=== PATIENT | male | born 1940 | race Caucasian/White ===

== ENCOUNTER 2017-09-15 11:28 | Inpatient (IN) | payer OTHER ==
[~2017-09-15] VITALS: Ht 172.7 cm; Wt 69.2 kg
[~2017-09-15 11:28] MED LIST: AMLODIPINE BESY10 MG PO; APRESOLINE100 MG PO; APRESOLINE50 MG PO; ASPERDRINK81 MG PO; ASPIR-LOW81 MG PO; ASPIRIN E.C.81 M1 PO; ATENOLOL25 M1 PO; ATIVAN1 MG PO; ATORVASTATIN CA40 MG PO; Ambien PO; Ativan PO; BACTRIM,SEPT1 TABLET PO; BISOPROLOL FUMAR5 MG PO; CALCITRIOL0.25 MCG PO; CATAPRES0.2 MG PO; CEFTIN500 MG PO; CILOSTAZOL100 MG PO; COLACE100 MG PO; DAILY MULTIPLE1 EACH PO; DOCUSATE SODIU100 MG PO; ESCITALOPRAM OX10 MG PO; ESCITALOPRAM OX20 MG PO; FAMOTIDINE20 MG PO; FEROSUL325 MG PO; FUROSEMIDE40 MG PO; HYDRALAZINE HC100 MG PO; HYDROCHLOROTHIA25 MG PO; HYDROCODON-ACE1 EAC7 PO; Habitrol,Nicoderm CQ TD; K-DUR20 MEQ PO; KLOR-CON M2020 MEQ PO; KLOR-CON20 MEQ PO; LASIX40 MG PO; LEVAQUIN500 MG PO; LEXAPRO10 MG PO; LIPITOR20 MG PO; LIPITOR40 MG PO; LISINOPRIL20 MG PO; LOPRESSOR50 MG PO; LORAZEPAM1 MG PO; LOSARTAN POTASS25 MG PO; NIFEDIPINE ER60 MG PO; NORVASC10 MG PO; PLETAL50 MG PO; PROVENTIL HFA6.7 GM IH; Pletal PO; TENORMIN25 MG PO; THERAGRAN1 TABLET PO; TOPROL XL100 MG PO; TRAMADOL HCL50 MG PO; Tylenol Regular Stre PO; Vicodin,Norco 5/325 PO; Vitamin D PO
[2017-09-15 13:03] LABS: HEMATOCRIT 35.2 % (38.0-50.0); MCH 28.7 PG (29.0-34.0); MCHC 31.8 G/DL (30.0-36.0); MCV 90.3 FL (86-99); MEAN PLAT.VOLUME 10.3 uM^3 (9.0-12.4); PLATELET COUNT 248 K/uL (156-360); RBC DIS.WIDTH-CV 14.3 % (11.8-14.6); RBC DIS.WIDTH-SD 46.7 % (39-53); WHITE BLOOD COUNT 7.2 K/uL (4.1-10.2)
[2017-09-15 13:13] LABS: CHLORIDE 111 mEq/L (99-109); POTASSIUM 4.8 mEq/L (3.7-5.4); SODIUM 136 mEq/L (136-147)
[2017-09-15 13:15] LABS: GLUCOSE 104 mg/dL (70-99)
[2017-09-15 13:16] LABS: ANION GAP 8 MEQ/L (2-14)
[2017-09-15 13:19] LABS: GFR ESTIMATE (CALCULATED) 20 mL/min/; UREA NITROGEN (BUN) 42 mg/dL (9-23)
[2017-09-15 13:24] LABS: TROP-I INTERPRETATION POSITIVE; TROPONIN-I 1.78 ng/mL (0.0-0.30)
[2017-09-15 14:55] LABS: PTT 39.6 SEC (25-37)
[2017-09-15] MEDS ORDERED: LOSARTAN POTASS25 MG PO (15:04)
[2017-09-15] MEDS ORDERED: HYDRALAZINE HCL50 MG PO (15:07)
[2017-09-15] MEDS ORDERED: CATAPRES0.2 MG PO (15:07)
[2017-09-15] MEDS ORDERED: NIFEDIPINE ER60 MG PO (15:08)
[2017-09-15 15:15] LABS: PROTHROMBIN TIME 11.5 SEC (10.2-12.9)
[2017-09-15 16:51] VITALS: BP 147/65
[2017-09-15 18:31] LABS: TROP-I INTERPRETATION POSITIVE; TROPONIN-I 1.62 ng/mL (0.0-0.30)
[2017-09-15 20:03] VITALS: BP 132/63
[2017-09-15 21:36] LABS: INTER. NORMALIZED RATIO 1.1; PROTHROMBIN TIME 12.2 SEC (10.2-12.9)
[2017-09-15 21:54] LABS: PTT 170.7 SEC (25-37)
[2017-09-15 23:26] VITALS: BP 132/68
[2017-09-16] VITALS (7 sets, daily range): BP systolic 127–188; BP diastolic 58–92
[2017-09-16 01:23] LABS: TROP-I INTERPRETATION POSITIVE
[2017-09-16 01:24] LABS: TROPONIN-I 1.52 ng/mL (0.0-0.30)
[2017-09-16 04:49] LABS: BASOPHIL COUNT 0.1 K/uL (0-0.1); EOSINOPHIL (%) 3.6 % (0-5); EOSINOPHIL COUNT 0.3 K/uL (0-0.3); HEMATOCRIT 31.9 % (38.0-50.0); IMMATURE GRANULOCYTE (%) 0.3 % (0.0-0.7); INSTRUMENT ABS NEUTROPHIL CT 4.6 K/uL; LYMPHOCYTE COUNT 1.8 K/uL (1.0-2.8); MCHC 31.3 G/DL (30.0-36.0); MCV 89.4 FL (86-99); MEAN PLAT.VOLUME 10.8 uM^3 (9.0-12.4); MONOCYTE COUNT 0.7 K/uL (0-0.8); NEUTROPHIL (%) 61.9 % (45-76); NEUTROPHIL COUNT 4.6 K/uL (1.8-6.4); PLATELET COUNT 231 K/uL (156-360); RBC DIS.WIDTH-CV 14.2 % (11.8-14.6); RBC DIS.WIDTH-SD 46.3 % (39-53); RED BLOOD COUNT 3.57 M/uL (4.00-5.50); WHITE BLOOD COUNT 7.5 K/uL (4.1-10.2)
[2017-09-16 05:04] LABS: CHLORIDE 116 mEq/L (99-109); POTASSIUM 5.5 mEq/L (3.7-5.4); SODIUM 137 mEq/L (136-147)
[2017-09-16 05:06] LABS: GLUCOSE 93 mg/dL (70-99)
[2017-09-16 05:07] LABS: ANION GAP 4 MEQ/L (2-14)
[2017-09-16 05:10] LABS: GFR ESTIMATE (CALCULATED) 25 mL/min/; TROP-I INTERPRETATION POSITIVE; TROPONIN-I 1.55 ng/mL (0.0-0.30); UREA NITROGEN (BUN) 44 mg/dL (9-23)
[2017-09-17 04:50] VITALS: BP 164/56
[2017-09-17 05:39] LABS: BASOPHIL COUNT 0.1 K/uL (0-0.1); EOSINOPHIL (%) 4.3 % (0-5); EOSINOPHIL COUNT 0.3 K/uL (0-0.3); IMMATURE GRANULOCYTE (%) 0.4 % (0.0-0.7); INSTRUMENT ABS NEUTROPHIL CT 4.1 K/uL; LYMPHOCYTE COUNT 1.9 K/uL (1.0-2.8); MCH 28.5 PG (29.0-34.0); MCHC 31.6 G/DL (30.0-36.0); MCV 90.1 FL (86-99); MEAN PLAT.VOLUME 10.7 uM^3 (9.0-12.4); MONOCYTE (%) 10.1 % (3-12); MONOCYTE COUNT 0.7 K/uL (0-0.8); NEUTROPHIL COUNT 4.1 K/uL (1.8-6.4); PLATELET COUNT 222 K/uL (156-360); RBC DIS.WIDTH-SD 46.5 % (39-53); RED BLOOD COUNT 3.55 M/uL (4.00-5.50); WHITE BLOOD COUNT 7.2 K/uL (4.1-10.2)
[2017-09-17 07:37] VITALS: BP 143/68
[2017-09-17 07:56] LABS: ANION GAP 9 MEQ/L (2-14); CHLORIDE 117 MEQ/L (99-109); GFR ESTIMATE (CALCULATED) 28 mL/min/; GLUCOSE 82 mg/dL (70-99); SAMPLE HEMOLYSIS CHECK 0; SAMPLE ICTERIC CHECK 0; SAMPLE LIPEMIA CHECK 0; SODIUM 140 MEQ/L (136-147); UREA NITROGEN (BUN) 43 mg/dL (9-23); URIC ACID 8.3 mg/dL (3.1-9.2)
[2017-09-17 11:38] VITALS: BP 150/40
[2017-09-17 12:03] VITALS: BP 160/52
[2017-09-17 15:30] VITALS: BP 152/60
[2017-09-17 18:39] VITALS: BP 160/72
[2017-09-18 00:20] VITALS: BP 153/62
[2017-09-18 05:25] VITALS: BP 172/62
[2017-09-18 05:47] LABS: HEMATOCRIT 32.7 % (38.0-50.0); MCH 29.5 PG (29.0-34.0); MCHC 32.7 G/DL (30.0-36.0); MCV 90.1 FL (86-99); MEAN PLAT.VOLUME 11.3 uM^3 (9.0-12.4); PLATELET COUNT 223 K/uL (156-360); RBC DIS.WIDTH-CV 13.8 % (11.8-14.6); RBC DIS.WIDTH-SD 45.5 % (39-53); RED BLOOD COUNT 3.63 M/uL (4.00-5.50); WHITE BLOOD COUNT 7.8 K/uL (4.1-10.2)
[2017-09-18 07:02] LABS: ANION GAP 9 MEQ/L (2-14); CHLORIDE 110 MEQ/L (99-109); GFR ESTIMATE (CALCULATED) 26 mL/min/; GLUCOSE 90 mg/dL (70-99); POTASSIUM 5.5 MEQ/L (3.7-5.4); SAMPLE HEMOLYSIS CHECK 0; SAMPLE ICTERIC CHECK 0; SAMPLE LIPEMIA CHECK 0; SODIUM 138 MEQ/L (136-147); UREA NITROGEN (BUN) 50 mg/dL (9-23)
[2017-09-18 08:23] VITALS: BP 184/78
[2017-09-18 11:32] VITALS: BP 165/71
[2017-09-18 16:00] VITALS: BP 170/70
[2017-09-18 20:39] VITALS: BP 152/58
[2017-09-19 01:06] VITALS: BP 99/62
[2017-09-19 05:37] VITALS: BP 133/74
[2017-09-19 05:51] LABS: ANION GAP 11 MEQ/L (2-14); CHLORIDE 108 MEQ/L (99-109); CHLORIDE 109 MEQ/L (99-109); GFR ESTIMATE (CALCULATED) 25 mL/min/; GLUCOSE 89 mg/dL (70-99); POTASSIUM 4.9 MEQ/L (3.7-5.4); SAMPLE HEMOLYSIS CHECK 0; SAMPLE ICTERIC CHECK 0; SAMPLE LIPEMIA CHECK 0; SODIUM 136 MEQ/L (136-147); UREA NITROGEN (BUN) 52 mg/dL (9-23); UREA NITROGEN (BUN) 53 mg/dL (9-23)
[2017-09-19 08:55] VITALS: BP 175/74
[2017-09-19 12:16] VITALS: BP 167/75
[2017-09-19] MEDS ORDERED: AMLODIPINE BESY10 MG PO (14:21)
[2017-09-19] MEDS ORDERED: NICOTINE PATCH1 EAC2 TD (14:21)
== END 2017-09-19 15:49 | disposition home or self-care (01) | DRG 281 ==
LOC: EME 11:28 → 4EAST 14:30 → EDOF 14:30 → ENRESERV 14:47 → 4EAST 16:21
PROVIDERS: Emergency Medicine; Family Medicine; Internal Medicine Nephrology
DX: I21.A1 Myocardial infarction type 2 (principal); R00.1 Bradycardia, unspecified; T46.5X5A Adverse effect of other antihypertensive drugs, initial encounter; I95.9 Hypotension, unspecified; E87.2 Acidosis; E83.51 Hypocalcemia; E87.5 Hyperkalemia; I12.9 Hypertensive chronic kidney disease with stage 1 through stage 4 chronic kidney disease, or unspecified chronic kidney disease; N18.4 Chronic kidney disease, stage 4 (severe); E11.22 Type 2 diabetes mellitus with diabetic chronic kidney disease; E11.21 Type 2 diabetes mellitus with diabetic nephropathy; J44.9 Chronic obstructive pulmonary disease, unspecified; N25.81 Secondary hyperparathyroidism of renal origin; D63.1 Anemia in chronic kidney disease; R79.89 Other specified abnormal findings of blood chemistry; E55.9 Vitamin D deficiency, unspecified; I67.9 Cerebrovascular disease, unspecified; I51.7 Cardiomegaly; I08.0 Rheumatic disorders of both mitral and aortic valves; I25.10 Atherosclerotic heart disease of native coronary artery without angina pectoris; I73.9 Peripheral vascular disease, unspecified; E78.5 Hyperlipidemia, unspecified; I69.398 Other sequelae of cerebral infarction; H54.61 Unqualified visual loss, right eye, normal vision left eye; F32.9 Major depressive disorder, single episode, unspecified; F41.9 Anxiety disorder, unspecified; F17.210 Nicotine dependence, cigarettes, uncomplicated; I25.2 Old myocardial infarction; Z95.1 Presence of aortocoronary bypass graft; Z95.5 Presence of coronary angioplasty implant and graft; Z87.442 Personal history of urinary calculi; Z79.82 Long term (current) use of aspirin
CPT/HCPCS: 70450; 71020; 80048; 80048 91; 80069; 82040; 83630; 84484; 84550; 85025; 85027; 85610; 85730; 86850; 86900; 86901; 87493; 87506; 93005; 93306; 99281; 99285; J0461; J7030

== ENCOUNTER → 2017-10-04 | Outpatient (CLI) | payer MEDICARE, OTHER ==
[~2017-10-04] MED LIST changes: +HYDRALAZINE HCL50 MG PO; +NICOTINE PATCH1 EAC2 TD
== END | disposition home or self-care (01) ==
LOC: CDC 08:40
DX: Z01.810 Encounter for preprocedural cardiovascular examination (principal); I45.10 Unspecified right bundle-branch block; I44.4 Left anterior fascicular block; R94.31 Abnormal electrocardiogram [ECG] [EKG]
CPT/HCPCS: 93000

== ENCOUNTER 2017-10-08 21:49 | Inpatient (IN) | payer OTHER ==
[~2017-10-08] VITALS: Ht 172.7 cm; Wt 72.1 kg
[2017-10-09 10:38] VITALS: BP 186/64
[2017-10-09 13:38] LABS: POINT-OF-CARE METER ID UU14174212
[2017-10-09 15:35] LABS: POINT-OF-CARE METER ID UU13113675; POINT-OF-CARE USER ID 515036437
[2017-10-09 20:00] VITALS: BP 203/66
[2017-10-09 20:34] LABS: METH RESISTANT S AUREUS PCR NEGATIVE (NEGATIVE)
[2017-10-09 20:35] LABS: PROBE CHECK PASS; SPECIMEN PROCESSING CONTROL PASS
[2017-10-10] VITALS (24 sets, daily range): BP systolic 74–204; BP diastolic 43–99
[2017-10-11] VITALS (15 sets, daily range): BP systolic 105–159; BP diastolic 39–77
[2017-10-11] MEDS ORDERED: HYDROCODON-ACE1 EAC7 PO (09:58)
[2017-10-11] MEDS ORDERED: CLONIDINE HCL0.2 MG PO (10:03)
[2017-10-11] MEDS ORDERED: IMDUR60 MG PO (10:03)
[2017-10-11 11:55] LABS: POINT-OF-CARE METER ID UU14174217
== END 2017-10-11 13:35 | disposition home or self-care (01) | DRG 38 ==
LOC: ENRESERV 21:49 → 2SOUTH 10-09 10:04 → ENRESERV 10-09 13:55 → 2SOUTH 10-09 16:07 → ENRESERV 10-09 16:10 → 2SOUTH 10-09 16:21 → ENRESERV 10-09 16:22 → 4WEST 10-09 19:08
PROVIDERS: Surgery
PROC: 03CN0ZZ Extirpation of Matter from Left External Carotid Artery, Open Approach (ICD-10-PCS; principal; 2017-10-09)
PROC: 03CL0ZZ Extirpation of Matter from Left Internal Carotid Artery, Open Approach (ICD-10-PCS; principal; 2017-10-09)
DX: I65.21 Occlusion and stenosis of right carotid artery (principal); F17.200 Nicotine dependence, unspecified, uncomplicated; I25.10 Atherosclerotic heart disease of native coronary artery without angina pectoris; E11.51 Type 2 diabetes mellitus with diabetic peripheral angiopathy without gangrene; E87.5 Hyperkalemia; R00.1 Bradycardia, unspecified; E78.5 Hyperlipidemia, unspecified; I16.0 Hypertensive urgency; K59.00 Constipation, unspecified; I10 Essential (primary) hypertension; N17.9 Acute kidney failure, unspecified; J44.9 Chronic obstructive pulmonary disease, unspecified; Z88.0 Allergy status to penicillin; Z87.11 Personal history of peptic ulcer disease; Z95.1 Presence of aortocoronary bypass graft; Z79.82 Long term (current) use of aspirin; I70.213 Atherosclerosis of native arteries of extremities with intermittent claudication, bilateral legs; M19.90 Unspecified osteoarthritis, unspecified site
CPT/HCPCS: 82948; 86850; 86900; 86901; 87641; 93005; J0131; J0360; J1644; J1650; J2405; J2720; J2795; J3010; J7120

== ENCOUNTER 2018-02-11 20:49 | Inpatient (IN) | payer OTHER ==
[~2018-02-11] VITALS: Ht 182.9 cm; Wt 71.6 kg
[~2018-02-11 20:49] MED LIST changes: +CLONIDINE HCL0.2 MG PO; +IMDUR60 MG PO
[2018-02-12 08:27] VITALS: BP 160/72
[2018-02-12] MEDS ORDERED: HYDROCODON-ACE1 EAC7 PO (13:48)
[2018-02-12 19:00] VITALS: BP 166/54
[2018-02-12 19:31] VITALS: BP 154/72; BP 154/78
[2018-02-12 23:57] VITALS: BP 116/71
[2018-02-13 04:48] VITALS: BP 132/74
[2018-02-13 08:13] VITALS: BP 149/67
== END 2018-02-13 11:20 | disposition home or self-care (01) | DRG 39 ==
LOC: ENRESERV 20:49 → 2SOUTH 02-12 08:09 → ENRESERV 02-12 16:21 → 4EAST 02-12 19:14 → ENPENDDIS 02-13 → 4EAST 02-13 11:20
PROVIDERS: Surgery
DX: I65.22 Occlusion and stenosis of left carotid artery (principal); J44.9 Chronic obstructive pulmonary disease, unspecified; E11.9 Type 2 diabetes mellitus without complications; I10 Essential (primary) hypertension; M81.0 Age-related osteoporosis without current pathological fracture; I73.9 Peripheral vascular disease, unspecified; I45.10 Unspecified right bundle-branch block; M10.9 Gout, unspecified; M19.90 Unspecified osteoarthritis, unspecified site; F17.200 Nicotine dependence, unspecified, uncomplicated; Z86.73 Personal history of transient ischemic attack (TIA), and cerebral infarction without residual deficits; I25.2 Old myocardial infarction
CPT/HCPCS: 82948; 93005; C1768; J0360; J0690; J1170; J1644; J1650; J2250; J2720; J2795; J7120